=== PATIENT | male | born 1990 | race Caucasian/White ===

== ENCOUNTER 2017-08-31 07:59 | Emergency (ER) | payer BC, OTHER ==
[2017-08-31 08:07] VITALS: TEMP 98.8
--- NOTE | 2017-08-31 09:31 | C.PDOC ---
History Of Present Illness 27 y/o male with PMHx of Anxiety presents to ED with complaints of Anxiety exacerbation . Patient states he was drinking last night and this morning woke up feeling shaky and "not himself". Patient states he took Xanax with no improvement which prompted visit to ED. No other complaints at this time. Time Seen by Provider: 08/31/17 08:24 Chief Complaint (Nursing): Anxiety History Per: Patient History/Exam Limitations: no limitations Onset/Duration Of Symptoms: Hrs Current Symptoms Are (Timing): Still Present Suicide/Self Injury Attempted (Context): None Past Medical History Reviewed: Historical Data, Nursing Documentation, Vital Signs Vital Signs: Last Vital Signs Temp 98.8 F 08/31/17 08:04 Pulse 96 H 08/31/17 11:13 Resp 20 08/31/17 11:13 BP 129/78 08/31/17 11:13 Pulse Ox 98 08/31/17 18:10 - Medical History PMH: Anxiety Family History: States: Unknown Family Hx - Social History Hx Tobacco Use: No Hx Alcohol Use: Yes Hx Substance Use: No - Immunization History Hx Tetanus Toxoid Vaccination: No Hx Influenza Vaccination: No Hx Pneumococcal Vaccination: No Review Of Systems Constitutional: Negative for: Fever, Chills Cardiovascular: Negative for: Chest Pain Gastrointestinal: Negative for: Nausea, Vomiting Skin: Negative for: Rash Neurological: Negative for: Weakness, Numbness Psych: Positive for: Anxiety. Negative for: Suicidal ideation Physical Exam - Physical Exam Appears: Non-toxic, No Acute Distress Skin: Warm, Dry, No Rash Head: Atraumatic, Normacephalic Oral Mucosa: Moist Neck: Normal ROM, Supple Cardiovascular: Rhythm Regular Respiratory: No Rales, No Rhonchi, No Wheezing Gastrointestinal/Abdominal: Soft, No Tenderness, No Guarding, No Rebound Extremity: Normal ROM, Capillary Refill (<2 seconds) Neurological/Psych: Oriented x3 ED Course And Treatment ECG: Interpreted By Me ECG Rhythm: Sinus Rhythm ECG Interpretation: Normal Rate From EC O2 Sat by Pulse Oximetry: 98 (RA) Pulse Ox Interpretation: Normal Medical Decision Making Medical Decision Making: Plan: ECG, Glucose Blood level Disposition Counseled Patient/Family Regarding: Studies Performed, Diagnosis, Need For Followup - Disposition Referrals: [facility] [Outside] [facility] [Outside] Disposition: HOME/ ROUTINE Disposition Time: 10:00 Condition: STABLE Additional Instructions: Follow up with your PMD or clinic for further evaluation Return to ED if any increase symptoms Instructions: Generalized Anxiety Disorder (ED), Anxiety (ED) Forms: [employer] (Spanish) - POA Present On Arrival: None - Clinical Impression Clinical Impression: Anxiety - PA / [employer] / Resident Statement MD/DO has reviewed & agrees with the documentation as recorded. - Scribe Statement The provider has reviewed the documentation as recorded by the Butchibashley Joiner All medical record entries made by the Young were at my direction and personally dictated by me. I have reviewed the chart and agree that the record accurately reflects my personal performance of the history, physical exam, medical decision making, and the department course for this patient. I have also personally directed, reviewed, and agree with the discharge instructions and disposition.
[2017-08-31 11:14] VITALS: BP 129/78; PULSE 96; RESP 20
[2017-08-31 18:10] VITALS: O2SAT 98
--- NOTE | 2017-09-01 15:11 | CARD ---
APPROVED REPORT EKG Measurement Heart [id number] <Conclusion> Normal sinus rhythm Minimal voltage criteria for LVH, may be normal variant Borderline ECG
== END 2017-08-31 11:14 | disposition home or self-care (01) ==
LOC: C.ER 07:59
DX: F41.9 Anxiety disorder, unspecified (principal)

== ENCOUNTER 2018-08-31 10:36 | Emergency (ER) | payer BC ==
[2018-08-31 10:48] VITALS: BMI 26.6
--- NOTE | 2018-08-31 11:33 | C.PDOC ---
History Of Present Illness 28 year old male presents to the emergency department with complaints of chest wall discomfort since this morning. Patient states that he had a recurring anxiety attack "like usual". Patient admits to taking to 2mg Xanax prior to arrival, reports his heart was racing "like I was running a marathon". Patient states that his anxiety has since resolved, but complains of residual left chest wall pain, which is worse with movement and deep breathing. Patient also reports lightheadedness associated with his anxiety which has since resolved. He denies all other symptoms. CHEST WALL DISCOMFORT SINCE THIS MORNING. 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 +ASSOC HEART RACING "LIKE I WAS RUNNING A MARATHON". ANXIETY NOW RESOLVED, STILL CO RESIDUAL L CHEST WALL PAIN. WORSE W MOVEMENT, DEEP BREATH. +INITIAL ASSOC LIGHTHEADEDNESS W ANXIETY, NOW RESOLVED. NO OTHER ASSOC SX EXAM NAD LUNGS CTA B/L NO W/R/R CHEST WALL NONTEND REPRODUC PAIN W MOVEMENT CV RRR PSYCH CALM COOPERATIVE NO ACUTE INTOX, PSYCHOSIS REMAINDER NEG Time Seen by Provider: 08/31/18 11:14 Chief Complaint (Nursing): Chest Pain History Per: Patient History/Exam Limitations: no limitations Onset/Duration Of Symptoms: Hrs Current Symptoms Are (Timing): Better Quality: "Pain" Past Medical History Reviewed: Historical Data, Nursing Documentation, Vital Signs Vital Signs: Last Vital Signs Temp 98.7 F 08/31/18 10:48 Pulse 89 08/31/18 10:48 Resp 20 08/31/18 10:48 BP 134/89 08/31/18 10:48 Pulse Ox 97 08/31/18 10:48 - Medical History PMH: Anxiety, Depression Surgical History: No Surg Hx Family History: States: No Known Family Hx - Social History Hx Tobacco Use: No Hx Alcohol Use: Yes Hx Substance Use: No - Immunization History Hx Tetanus Toxoid Vaccination: No Hx Influenza Vaccination: No Hx Pneumococcal Vaccination: No Review Of Systems Except As Marked, All Systems Reviewed And Found Negative. Constitutional: Negative for: Fever, Chills Cardiovascular: Positive for: Chest Pain (left-sided), Palpitations, Light Headedness Gastrointestinal: Negative for: Nausea, Vomiting Psych: Positive for: Anxiety Physical Exam - Physical Exam Appears: Non-toxic, No Acute Distress Skin: Normal Color, Warm, Dry Head: Atraumatic, Normacephalic Eye(s): bilateral: Normal Inspection, PERRL, EOMI Oral Mucosa: Moist Neck: Normal, Supple Chest: Symmetrical, No Tenderness, Other (reproducible pain with movement) Cardiovascular: Rhythm Regular, No Murmur Respiratory: Normal Breath Sounds (clear to auscultation bilaterally.), No Rales, No Rhonchi, No Wheezing Neurological/Psych: Oriented x3, Normal Speech, Normal Cognition, Other (Calm, cooperative. No acute intoxication or psychosis. ) ED Course And Treatment ECG: Interpreted By Me ECG Rhythm: Sinus Rhythm ECG Interpretation: Normal Rate From EC O2 Sat by Pulse Oximetry: 97 Pulse Ox Interpretation: Normal Medical Decision Making Medical Decision Making: Plan: Toradol 60mg IM Disposition Counseled Patient/Family Regarding: Studies Performed, Diagnosis, Need For Followup, Rx Given - Disposition Referrals: YOUR,PMD [Other] Disposition: HOME/ ROUTINE Disposition Time: 11:33 Condition: IMPROVED Prescriptions: Ibuprofen [Motrin] 600 mg PO Q6 #30 tab Instructions: Chest Pain That Is Not Caused by the Heart (DC) Forms: [employer] (Mauritian), Work Excuse - Clinical Impression Clinical Impression: Anxiety, Chest wall pain - Scribe Statement The provider has reviewed the documentation as recorded by the Scribe (Nick Grimaldo) Provider Attestation: All medical record entries made by the Scribe were at my direction and personally dictated by me. I have reviewed the chart and agree that the record accurately reflects my personal performance of the history, physical exam, medical decision making, and the department course for this patient. I have also personally directed, reviewed, and agree with the discharge instructions and disposition.
[2018-08-31 11:52] VITALS: BP 125/79; PULSE 88; RESP 16; TEMP 98.8
--- NOTE | 2018-09-01 17:33 | CARD ---
APPROVED REPORT Date of service: 08/31/2018 EKG Measurement Heart [id number] <Conclusion> Normal sinus rhythm Normal ECG
[2018-09-02 07:17] VITALS: O2SAT 97
== END 2018-08-31 11:51 | disposition home or self-care (01) ==
LOC: C.ER 10:36
DX: F41.9 Anxiety disorder, unspecified (principal); R07.89 Other chest pain
CPT/HCPCS: 93005; 96372; 99284; J1885